=== PATIENT | male | born 1965 | race Caucasian/White ===

== ENCOUNTER 2018-04-18 12:54 | Emergency (ER) | payer OTHER ==
[2018-04-18 13:02] VITALS: BP 150/83; PULSE 109; TEMP 98.5; BMI 34.0
--- NOTE | 2018-04-18 13:42 | PDOC ---
History of Present Illness - General Chief Complaint: Pain Stated Complaint: RT KNEE PAIN Time Seen by Provider: 04/18/18 13:17 History Source: Patient Exam Limitations: Clinical Condition - History of Present Illness Initial Comments: 04/18/18 13:36 Patient with h/o psoriasis present with complains of 1 week h/o intermittent right knee pain which alternate between medial and lateral side and sometimes goes up to right thigh. Denies trauma or injury to knee. report pain is worse with ambulation and improves with motrin Timing/Duration: 1 week Severity: mild Modifying Factors: improves with: medication (motrin), rest. worse with: movement Associated Symptoms: denies: shortness of breath, weakness Aspirin Received prior to arrival: Yes: no aspirin today Past History - Past Medical History Allergies/Adverse Reactions: Allergies Allergy/AdvReac Type Severity Reaction Status Date / Time No Known Allergies Allergy Verified 04/18/18 13:02 Home Medications: Ambulatory Orders Leg Brace [Knee Brace] 1 each MC DAILY #1 each 04/18/18 Naproxen 500 mg PO BID PRN #20 tablet. 04/18/18 [place]-3 Acid Ethyl Esters [Lovaza] 1 gm PO DAILY 04/18/18 - Suicide/Smoking/Psychosocial Hx Smoking History: Never smoked Have you smoked in the past 12 months: No Information on smoking cessation initiated: No Hx Alcohol Use: No Drug/Substance Use Hx: No Review of Systems - Review of Systems Able to Perform ROS?: Yes Is the patient limited [place] proficient: No Constitutional: No: Chills, Diaphoresis, Fever, Loss of Appetite, Malaise, Night Sweats, Weakness, Weight Stable, Unintentional Wgt. Loss, Unexplained wgt Loss, Other HEENTM: No: Eye Pain, Blurred Vision, Tearing, Recent change in vision, Double Vision, Cataracts, Ear Pain, Ocular Prothesis, Ear Discharge, Nose Pain, Nose Congestion, Tinnitus, Nose Bleeding, Hearing Loss, Throat Pain, Throat Swelling , Mouth Pain, Dental Problems, Difficulty Swallowing, Mouth Swelling, Other Respiratory: No: Cough, Orthopnea, Shortness of Breath, SOB with Exertion, SOB at Rest, Stridor, Wheezing, Productive cough, Hemoptysis, Other Cardiac (ROS): No: Chest Pain, Edema, Irregular Heart Rate, Lightheadedness, Palpitations, Syncope, Chest Tightness, Other ABD/GI: No: Abdominal Distended, Abd. Pain w/ defecation, Blood Streaked Bowels , Constipated, Diarrhea, Difficulty Swallowing, Nausea, Poor Appetite, Poor Fluid Intake, Rectal Bleeding, Vomiting, Indigestion, Abdominal cramping, Tarry Stools, Other Musculoskeletal: Yes: Joint Pain (right knee), Muscle Pain (right knee). No: Joint Swelling, Muscle Weakness, Joint Stiffness Integumentary: Yes: Rash (multiple psoriasis rash to b/l LE) Neurological: No: Headache, Numbness, Paresthesia, Pre-Existing Deficit, Seizure , Tingling, Tremors, Weakness, Unsteady Gait, Ataxia, Dizziness, Other Psychiatric: No: Anxiety, Depression, Frequent Crying, Stressors, Sleep Pattern Change, Emotional Problems, Mood Swings, Change in Appetite, Other Hematologic/Lymphatic: No: Blood Clots, Easy Bleeding, Easy Bruising *Physical Exam - Vital Signs Last Vital Signs Temp Pulse Resp BP Pulse Ox 98.5 F 109 H 18 150/83 98 04/18/18 12:57 04/18/18 12:57 04/18/18 12:57 04/18/18 12:57 04/18/18 12:57 - Physical Exam General Appearance: Yes: Nourished, Appropriately Dressed. No: Apparent Distress HEENT: positive: RAGHAV, Normal ENT Inspection, Normal Voice, TMs Normal, Pharynx Normal Neck: positive: Trachea midline, Supple Respiratory/Chest: positive: Lungs Clear. negative: Respiratory Distress, Accessory Muscle Use Cardiovascular: positive: Regular Rhythm, Regular Rate, S1, S2 Gastrointestinal/Abdominal: positive: Normal Bowel Sounds Musculoskeletal: positive: Other (Moderate tenderness to medial collateral side of right knee. no swelling to knee. negative anterior/posterior draw test of right knee) Extremity: positive: Normal Capillary Refill, Tender (moderate tenderness to medial side of right knee. multiple psoriatic plaques to foss of b/l lower legs) Integumentary: positive: Rash (multiple psoriatic plaques to b/l LE) Neurologic: positive: Fully Oriented, Normal Mood/Affect, Normal Response, Motor Strength 5/5 (right knee and lower leg) ED Treatment Course - RADIOLOGY Radiology Studies Ordered: Category Date Time Status KNEE 3 POS-RIGHT [RAD] Stat Radiology 04/18/18 13:26 Ordered Medical Decision Making - Medical Decision Making 04/18/18 13:43 Patient with right knee pain s/o trauma. likely knee sprain vs psoriatic arthritis . x-ray of right knee ordered. treat based on imaging results 04/18/18 14:06 x-rays of right knee shows mild joint effusion. no fracture or dislocations. pt stable d/c with ortho follow-up. right knee wrapped with 6inches joey bandage *DC/Admit/Observation/Transfer Diagnosis at time of Disposition: Right knee sprain Qualifiers: Encounter type: initial encounter Involved ligament of knee: medial collateral ligament Qualified Code(s): S83.411A - Sprain of medial collateral ligament of right knee, initial encounter Right knee pain Qualifiers: Chronicity: acute Qualified Code(s): M25.561 - Pain in right knee - Discharge Dispostion Disposition: HOME Condition at time of disposition: Stable Decision to Admit order: No - Prescriptions Prescriptions: Leg Brace [Knee Brace] 1 each MC DAILY #1 each Naproxen 500 mg PO BID PRN #20 tablet.dr RAI Reason: knee pain - Referrals Referrals: Jesse Estevez MD [Staff Physician] - - Patient Instructions Printed Discharge Instructions: Arthritis (Alternative Therapy), DI for Psoriatic Arthritis Additional Instructions: Take medication as needed as prescribed. rest knee. keep knee elevated. wear knee brace daily until orthopedics follow-up - Post Discharge Activity
== END 2018-04-18 14:28 | disposition home or self-care (01) ==
LOC: JERFT 12:54
DX: S83.411A Sprain of medial collateral ligament of right knee, initial encounter (principal); L40.8 Other psoriasis; X58.XXXA Exposure to other specified factors, initial encounter; Y93.89 Activity, other specified; Y92.89 Other specified places as the place of occurrence of the external cause; Y99.8 Other external cause status
CPT/HCPCS: 73562-TC-RT-FY; 99281-25

== ENCOUNTER 2018-04-19 14:57 | Emergency (ER) | payer OTHER ==
[2018-04-19 15:32] VITALS: BP 111/79; PULSE 105; TEMP 98.6; BMI 34.0
--- NOTE | 2018-04-19 15:33 | PDOC ---
Rapid Medical Evaluation Time Seen by Provider: 04/19/18 15:27 Medical Evaluation: Allergies Allergy/AdvReac Type Severity Reaction Status Date / Time No Known Allergies Allergy Verified 04/19/18 15:27 04/19/18 15:28 I have performed a brief in-person evaluation of this patient. The patient presents with a chief complaint of:2nd ED visit for R knee pain. No trauma. Seen in ER yesterday w/ some effusion on XR, dx w/ possible "strain vs psoriatic arthritis". Pain not improved w/ naproxen and brace. 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 Discharge Disposition - Diagnosis Right knee pain Qualifiers: Chronicity: acute Qualified Code(s): M25.561 - Pain in right knee - Referrals - Patient Instructions - Post Discharge Activity
[2018-04-19] MEDS ORDERED: LIDOCAINE HCL 1%, 10 MG/ML (50 mL VIAL) SQ ONE (15:48)
[2018-04-19] MEDS ORDERED: LIDOCAINE HCL 1%, 10 MG/ML (20ML VIAL) ONE (15:50)
--- NOTE | 2018-04-19 16:13 | PDOC ---
History of Present Illness - General Chief Complaint: Pain Stated Complaint: REVISIT/ RT KNEE PAIN Time Seen by Provider: 04/19/18 15:27 - History of Present Illness Initial Comments: 52-year-old male with history of psoriasis presents for evaluation of right knee pain. He was seen in the ED emergency room yesterday was given a prescription for Naprosyn and told to follow-up with orthopedics. He presents with worsening right knee pain. He denies any systemic symptoms. 04/19/18 16:08 Past History - Past Medical History Allergies/Adverse Reactions: Allergies Allergy/AdvReac Type Severity Reaction Status Date / Time No Known Allergies Allergy Verified 04/19/18 15:27 Home Medications: Ambulatory Orders Leg Brace [Knee Brace] 1 each MC DAILY #1 each 04/18/18 Naproxen 500 mg PO BID PRN #20 tablet. 04/18/18 [place]-3 Acid Ethyl Esters [Lovaza] 1 gm PO DAILY 04/18/18 COPD: No - Suicide/Smoking/Psychosocial Hx Smoking History: Never smoked Have you smoked in the past 12 months: No Information on smoking cessation initiated: No Hx Alcohol Use: No Drug/Substance Use Hx: No Substance Use Type: None Review of Systems - Review of Systems Musculoskeletal: Yes: Joint Pain All Other Systems: Reviewed and Negative *Physical Exam - Vital Signs Last Vital Signs Temp Pulse Resp BP Pulse Ox 98.6 F 105 H 18 111/79 100 04/19/18 15:28 04/19/18 15:28 04/19/18 15:28 04/19/18 15:28 04/19/18 15:28 - Physical Exam Comments: Right knee skin color and temperature within normal limits his extensor mechanism intact, range of motion 0-90 without pain. Beyond 90 causes discomfort. There is a large intra-articular effusion no evidence of instability he does have mild posterior medial joint line tenderness. Thigh and calf is soft and nontender. He has no gross sensorimotor deficits. Neurovascularly intact. 04/19/18 16:09 ED Treatment Course - Medications Given in the ED: ED Medications Discontinued Medications Generic Name Dose Route Start Last Admin Trade Name Freq PRN Reason Stop Dose Admin Lidocaine HCl 10 ml 04/19/18 15:48 04/19/18 15:51 Xylocaine 1% SQ 04/19/18 15:49 10 ml ONCE ONE Administration Medical Decision Making - Medical Decision Making Aseptically the right knee was injected with 1% lidocaine 6 mL in total. An 18- gauge needle was used to aspirate the knee. 70 mL of serous fluid was aspirated a dry sterile dressing was placed in a compressive Guillaume wrap on top of that. The fluid was sent to the lab for synovial fluid analysis. He was tolerated well and done without complication. 04/19/18 16:09 *DC/Admit/Observation/Transfer Diagnosis at time of Disposition: Knee effusion, right Right knee pain Qualifiers: Chronicity: acute Qualified Code(s): M25.561 - Pain in right knee - Discharge Dispostion Disposition: HOME Condition at time of disposition: Improved Decision to Admit order: No - Referrals Referrals: El Armstrong MD [Staff Physician] - - Patient Instructions Printed Discharge Instructions: DI for Knee Effusion Additional Instructions: Return to the emergency room should her symptoms worsen or go unresolved. Follow -up with orthopedics as scheduled in 1-2 days for further evaluation and treatment options. Do not sleep with a compressive Guillaume wrap around her leg. Continue to take the Naprosyn as directed elevate the knee and keep it compressed while you were awake. - Post Discharge Activity
[2018-04-19 17:50] LABS: GLUCOSE,SYNOVIAL FLUID 5 mg/dL; TOTAL PROTEIN,SYNOVIAL FLUID 5 gm/dL
== END 2018-04-19 16:20 | disposition home or self-care (01) ==
LOC: JERFT 14:57
PROC: 0S9C3ZZ Drainage of Right Knee Joint, Percutaneous Approach (ICD-10-PCS; principal; 2018-04-19)
DX: M25.461 Effusion, right knee (principal)
CPT/HCPCS: 36415; 82150; 82945; 83615; 84157; 84560; 99281-25